=== PATIENT | female | born 1980 ===

== ENCOUNTER 2018-05-20 06:22 | Day surgery (SDC) | payer OTHER ==
[~2018-05-20 06:22] MED LIST: ACETAMINOPHEN500 M1 PO; AMOXICILLIN500 M1 PO; ATROVENT HFA12.9 GM IH; BIOTIN300 MCG PO; FOLGARD TABLET1 EACH PO; NASONEX17 GM NS; PREDNISONE10 MG PO; PROVENTIL HFA6.7 GM IH; ZYRTEC10 M3 PO
== END 2018-05-20 15:25 | disposition home or self-care (01) ==
LOC: CIR.AMB 06:22
DX: N84.0 Polyp of corpus uteri (principal)